=== PATIENT | female | born 1950 | race Caucasian/White ===

== ENCOUNTER 2020-02-09 12:46 | Outpatient (CLI) | payer MEDICARE ==
[2020-02-09] MEDS ORDERED: FENTANYL PF 100 MCG/2ML ONE (13:16)
[2020-02-09] MEDS ORDERED: MIDAZOLAM 1 MG/ML, 5ML ONE (13:17)
== END 2020-02-09 23:59 | disposition home or self-care (01) ==
LOC: RAD 12:46
PROVIDERS: ATTEND Nurse Practitioner Family
DX: M51.16 Intervertebral disc disorders with radiculopathy, lumbar region (principal); M47.26 Other spondylosis with radiculopathy, lumbar region; M48.061 Spinal stenosis, lumbar region without neurogenic claudication; M43.16 Spondylolisthesis, lumbar region; M25.78 Osteophyte, vertebrae; M96.1 Postlaminectomy syndrome, not elsewhere classified; M50.10 Cervical disc disorder with radiculopathy, unspecified cervical region; I10 Essential (primary) hypertension; E66.9 Obesity, unspecified; Z68.38 Body mass index [BMI] 38.0-38.9, adult; Z79.82 Long term (current) use of aspirin; Z79.899 Other long term (current) drug therapy; Z88.2 Allergy status to sulfonamides; Z98.84 Bariatric surgery status; Z98.890 Other specified postprocedural states; Z82.49 Family history of ischemic heart disease and other diseases of the circulatory system
CPT/HCPCS: 72148; 99156; 99157; J2250; J3010